=== PATIENT | female | born 1970 | race Caucasian/White ===

== ENCOUNTER 2018-08-10 09:45 | Inpatient (IN) | payer BC ==
[2018-08-10 10:17] LABS: Absolute Lymphocytes (CBC) 1.1 K/uL (0.7-4.9); Absolute Monocytes 0.4 K/uL (0.1-1.3); Absolute Neutrophil 2.8 K/uL (1.8-8.0); Basophils % 0.8 % (0-1.3); Eosinophils % 1.1 % (0-4.4); Hematocrit 41.1 % (36.0-45.0); Lymphocytes % 26.1 % (15.3-44.8); MCV 93.7 fL (80-100); MPV 9.6 fL (7.6-11.3); Monocytes % 8.8 % (3.3-12.3); RBC Red Blood Cell Count 4.39 M/uL (3.86-4.86)
[2018-08-10] MEDS ORDERED: MORPHINE 4 MG/ML SYR ONE ×2 (10:17→10:26)
[2018-08-10] MEDS ORDERED: ONDANSETRON 4 MG/2 ML VIAL ONE (10:18)
[2018-08-10] MEDS ORDERED: NITROGLYCERIN 0.4 MG/TAB SL ONE (10:18)
[2018-08-10 10:40] LABS: Bilirubin Direct 0.2 mg/dL (0-0.2); Bilirubin Total 0.6 mg/dL (0.2-1.0); Magnesium 2.5 mg/dL (1.8-2.4); Potassium 4.2 mmol/L (3.5-5.1); Protein, Total 8.1 g/dL (6.4-8.2); Troponin (Emerg Dept Use Only) 0.16 ng/mL (0.0-0.045)
--- NOTE | 2018-08-10 11:12 | RAD REPORT ---
EXAM DESCRIPTION: CT - Chest For Pe Angio - 08/10/2018 10:58 am CLINICAL HISTORY: Chest pain. CHEST PAIN COMPARISON: No comparisons TECHNIQUE: CT angiogram of the pulmonary arteries was performed with MIP. All CT scans are performed using dose optimization technique as appropriate and may include automated exposure control or mA/KV adjustment according to patient size. FINDINGS: No evidence of pulmonary thromboembolism. No acute aortic finding demonstrated. Mild interstitial pulmonary edema is present. No significant pericardial or pleural fluid. No concerning bony finding. IMPRESSION: No evidence of pulmonary thromboembolism. Mild interstitial pulmonary edema.
--- NOTE | 2018-08-10 11:20 | RAD REPORT ---
EXAM DESCRIPTION: RAD - Chest Single View - 08/10/2018 11:12 am CLINICAL HISTORY: CHEST PAIN Chest pain. COMPARISON: No comparisons FINDINGS: Portable technique limits examination quality. The lungs are grossly clear. The heart is normal in size. No displaced fractures. IMPRESSION: No acute intrathoracic process suspected.
--- NOTE | 2018-08-10 11:25 | ER ---
Nurse's Notes [facility] Name: Leslie Floyd Age: 48 yrs Sex: Female : 1970 Arrival Date: 08/10/2018 Time: 09:48 Bed 2 Private MD: Diagnosis: Chest pain, unspecified;Non-ST elevation (NSTEMI) myocardial infarction Presentation: 08/10 09:49 Presenting complaint: EMS states: Substernal chest pain began at 2200 last night, jl7 shortness of breath started at 0300, given 324 mg Aspirin prior to arrival. Transition of care: patient was not received from another setting of care. Onset of symptoms was August 09, 2018 at 22:00. Risk Assessment: Do you want to hurt yourself or someone else? Patient reports no desire to harm self or others. Initial Sepsis Screen: Does the patient meet any 2 criteria? No. Patient's initial sepsis screen is negative. Does the patient have a suspected source of infection? No. Patient's initial sepsis screen is negative. Care prior to arrival: None. 09:49 Method Of Arrival: EMS: [facility] 7 09:49 Acuity: LENCHO 2 jl7 Triage Assessment: 09:52 General: Appears in no apparent distress. uncomfortable, Behavior is calm, cooperative, jl7 appropriate for age. Pain: Complains of pain in mid-sternal area Pain does not radiate. Pain currently is 4 out of 10 on a pain scale. Quality of pain is described as pressure, Pain began Last night at 2200 Is continuous. EENT: No signs and/or symptoms were reported regarding the EENT system. Neuro: Level of Consciousness is awake, alert, obeys commands, Oriented to person, place, time, situation. Cardiovascular: Heart tones S1 S2 present Patient's skin is warm and dry. Respiratory: Airway is patent Respiratory effort is even, unlabored, Respiratory pattern is regular, symmetrical, Breath sounds are clear bilaterally. GI: No signs and/or symptoms were reported involving the gastrointestinal system. Patient currently denies diarrhea, nausea, vomiting. : No signs and/or symptoms were reported regarding the genitourinary system. Derm: Skin is pink, warm \T\ dry. Musculoskeletal: No signs and/or symptoms reported regarding the musculoskeletal system. 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 - Social history:: Smoking status: Patient/guardian denies using tobacco. - Ebola Screening: : No symptoms or risks identified at this time. - Family history:: not pertinent. - Hospitalizations: : No recent hospitalization is reported. Screenin:55 Abuse screen: Denies threats or abuse. Denies injuries from another. Nutritional jl7 screening: No deficits noted. Tuberculosis screening: No symptoms or risk factors identified. Fall Risk IV access (20 points). Total Nixon Fall Scale indicates No Risk (0-24 pts). Assessment: 09:55 General: See triage assessment. jl7 10:05 Reassessment: Pt reports increased pain and discomfort, ERD notified, see MAR for jl7 orders. 10:32 Reassessment: Pt reports decreased pain and easier breathing at this time, ERD notified.jl7 10:44 Reassessment: Dr. Nuñez at bedside discussing plan of care. jl7 12:30 Reassessment: Report given to EULALIA Rush (admitting nurse) . aa5 13:00 Reassessment: Echo being completed at bedside . aa5 13:00 Reassessment: Patient is alert/active/playful, equal unlabored respirations, skin aa5 warm/dry/pink. Vital Signs: 09:52 BP 139 / 96; Pulse 100; Resp 18 S; Temp 99.1(O); Pulse Ox 99% on R/A; Weight 65.77 kg jl7 (R); Height 5 ft. 5 in. (165.10 cm) (R); Pain 4/10; 10:30 BP 107 / 81; Pulse 93; Resp 17 S; Pulse Ox 95% on R/A; jl7 10:44 BP 111 / 80; Pulse 86; Resp 19; Pulse Ox 99% on R/A; jl7 09:52 Body Mass Index 24.13 (65.77 kg, 165.10 cm) 7 ED Course: 09:48 Patient arrived in ED. jl7 09:51 Triage completed. jl7 09:51 Bird Nuñez MD is Attending Physician. rn 09:52 Arm band placed on right wrist. jl7 09:55 Patient has correct armband on for positive identification. Placed in gown. Bed in low jl7 position. Call light in reach. Side rails up X2. quality assurance monitor on. Pulse ox on. NIBP on. Warm blanket given. 09:55 Patient maintains SpO2 saturation greater than 95% on room air. jl7 10:00 Initial lab(s) drawn, by me, sent to lab. Inserted saline lock: 20 gauge in right aa5 antecubital area, using aseptic technique. Blood collected. 10:03 EKG done, by ED staff, reviewed by Bird Nuñez MD. dh3 10:27 Tatyana Segura, EULALIA is Primary Nurse. jl7 10:58 CT completed. Patient tolerated procedure well. Patient moved to CT via stretcher. jg6 Patient moved back from CT. 10:59 CT Chest For PE Angio In Process Unspecified. EDMS 11:13 XRAY Chest (1 view) In Process Unspecified. EDMS 11:24 Leigha Nelson MD is Hospitalizing Provider. rn 12:30 No provider procedures requiring assistance completed. aa5 12:30 Patient admitted, IV remains in place. aa5 13:24 Echocardiogram with doppler done by electronic engineering technician. tc Administered Medications: 10:09 Drug: Nitroglycerin 0.4 mg Route: Sublingual; jl7 10:30 Follow up: Response: No adverse reaction; Pain is decreased jl7 10:10 Drug: Zofran 4 mg Route: IVP; Site: right antecubital; jl7 10:30 Follow up: Response: No adverse reaction jl7 10:16 Drug: morphine 2 mg Route: IVP; Site: right antecubital; jl7 10:30 Follow up: Response: No adverse reaction; Pain is decreased jl7 11:35 Drug: PlaVIX 75 mg Route: PO; jl7 13:11 Follow up: Response: No adverse reaction jl7 12:00 Drug: Heparin ([place]-Bolus No thrombolytic) - HEParin 60 units/kg {Co-Signature: aa5 jl7 (Mackenzie Marin RN).} Route: IVP; Site: right antecubital; 12:00 Drug: Heparin ([place] Drip) 12 units/kg/hr - (HEParin 64908 units, D5W 500 ml) jl7 {Co-Signature: andrae (Mackenzie Marin RN).} Route: IV; Rate: calculated rate; Site: right antecubital; 13:39 Follow up: IV Status: Infusion continued upon admission jl7 Outcome: 11:24 Decision to Hospitalize by Provider. rn 13:30 Admitted to Tele accompanied by tech, via wheelchair, with chart, Report called to andrae Rush RN 13:30 Condition: stable 13:30 Instructed on the need for admit, Demonstrated understanding of instructions. 13:39 Patient left the ED. andrae Signatures: Dispatcher [employer] EDMS Bird Nuñez MD MD rn Calderon, Mackenzie, RN RN aa5 Sonja Bullard, health educator EKG [facility] Tatyana Segura RN RN jl7 Jael Walters [facility] Isaura Tavera [facility] Mackenzie abebe
--- NOTE | 2018-08-10 11:25 | EDPHYS ---
Physician Documentation [facility] Name: Leslie Floyd Age: 48 yrs Sex: Female : 1970 Arrival Date: 08/10/2018 Time: 09:48 Bed 2 Private MD: ED Physician Bird Nuñez HPI: 08/10 10:25 This 48 yrs old Female presents to ER via EMS with complaints of Chest Pain > rn 31 y/o. 10:25 The patient or guardian reports chest pain that is located primarily in the substernal rn area. Onset: last night. The pain does not radiate. Associated signs and symptoms: Pertinent positives: nausea, Pertinent negatives: abdominal pain, cough, diaphoresis, palpitations, syncope, vomiting. The chest pain is described as a heaviness, a pressure. Duration: The patient or guardian reports a single episode, that is still ongoing. Severity of pain: At its worst the pain was mild in the emergency department the pain is unchanged. The patient has not experienced similar symptoms in the past. The patient has not recently seen a physician. 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 - Social history:: Smoking status: Patient/guardian denies using tobacco. - Ebola Screening: : No symptoms or risks identified at this time. - Family history:: not pertinent. - Hospitalizations: : No recent hospitalization is reported. ROS: 10:25 Constitutional: Negative for fever, chills, and weight loss, Eyes: Negative for injury, rn pain, redness, and discharge, Neck: Negative for injury, pain, and swelling, Cardiovascular: Negative for palpitations, and edema, Respiratory: Negative for cough, wheezing, and pleuritic chest pain, Abdomen/GI: Negative for abdominal pain, nausea, vomiting, diarrhea, and constipation, MS/Extremity: Negative for injury and deformity, Skin: Negative for injury, rash, and discoloration, Neuro: Negative for headache, weakness, numbness, tingling, and seizure. Exam: 10:05 ECG was reviewed by the Attending Physician. rn 10:25 Constitutional: This is a well developed, well nourished patient who is awake, alert, rn and in no acute distress. Head/Face: Normocephalic, atraumatic. Eyes: Pupils equal round and reactive to light, extra-ocular motions intact. Lids and lashes normal. Conjunctiva and sclera are non-icteric and not injected. Cornea within normal limits. Periorbital areas with no swelling, redness, or edema. Cardiovascular: Regular rate and rhythm. No pulse deficits. Respiratory: Lungs have equal breath sounds bilaterally, clear to auscultation and percussion. No increased work of breathing Abdomen/GI: soft, non-tender Skin: Warm, dry, no evidence of cellulitis. MS/ Extremity: Pulses equal, no cyanosis. Neurovascular intact. Full, normal range of motion. Equal circumference. Neuro: Awake and alert, GCS 15, oriented to person, place, time, and situation. Cranial nerves II-XII grossly intact. Motor strength 5/5 in all extremities. Sensory grossly intact. Vital Signs: 09:52 BP 139 / 96; Pulse 100; Resp 18 S; Temp 99.1(O); Pulse Ox 99% on R/A; Weight 65.77 kg 7 (R); Height 5 ft. 5 in. (165.10 cm) (R); Pain 4/10; 10:30 BP 107 / 81; Pulse 93; Resp 17 S; Pulse Ox 95% on R/A; jl7 10:44 BP 111 / 80; Pulse 86; Resp 19; Pulse Ox 99% on R/A; jl7 09:52 Body Mass Index 24.13 (65.77 kg, 165.10 cm) 7 MDM: 09:51 Patient medically screened. rn 11:22 Differential diagnosis: acute myocardial infarction, acute pericarditis, coronary rn artery disease costochondritis, gastritis, gastroesophageal reflux disease (GERD), pleurisy, pneumonia, pneumothorax, pulmonary embolus, stable angina. The patient was not given aspirin in the Emergency Department. Patient reports taking aspirin within the past 24 hours. Data reviewed: vital signs, nurses notes, lab test result(s), EKG, radiologic studies, CT scan, plain films, and as a result, I will admit patient. Counseling: I had a detailed discussion with the patient and/or guardian regarding: the historical points, exam findings, and any diagnostic results supporting the discharge/admit diagnosis, lab results, radiology results, the need for further work-up and treatment in the hospital. Response to treatment: the patient's symptoms have mildly improved after treatment, and as a result, I will admit patient. Admission orders: after a detailed discussion of the patient's condition and case, the admit orders are written by me. 11:22 ED course: Spoke with Dr. Nelson, CT PE negative for PE or pericardial effusion, will rn mds for NSTEMI and further chest pain evaluation.. 11:34 ED course: Chest pain nearly resolved, feels better after nitro and morphine.. rn 08/10 10:02 Order name: Basic Metabolic Panel; Complete Time: 10: rn 08/10 10:02 Order name: CBC with Diff; Complete Time: 10: rn 08/10 10:02 Order name: LFT's; Complete Time: : rn 08/10 10:02 Order name: Magnesium; Complete Time: : rn 08/10 10:02 Order name: NT PRO-BNP; Complete Time: : rn 08/10 10:02 Order name: Troponin (emerg Dept Use Only); Complete Time: : rn 08/10 10:02 Order name: XRAY Chest (1 view); Complete Time: 11: rn 08/10 10:02 Order name: Lipase; Complete Time: 10: rn 08/10 10:02 Order name: D-Dimer; Complete Time: 10:39 rn 08/10 10:31 Order name: CT Chest For PE Angio; Complete Time: 11: rn 08/10 11:32 Order name: Echo with Doppler EDMS 08/10 11:48 Order name: Ptt, Activated dh3 08/10 10:02 Order name: EKG; Complete Time: 10: rn 08/10 10:02 Order name: Cardiac monitoring; Complete Time: : rn 08/10 10:02 Order name: EKG - Nurse/Tech; Complete Time: 10: rn 08/10 10:02 Order name: IV Saline Lock; Complete Time: : rn 08/10 10:02 Order name: Labs collected and sent; Complete Time: 10: rn 08/10 10:02 Order name: O2 Per Protocol; Complete Time: :08/10 10:02 Order name: O2 Sat Monitoring; Complete Time: 10: rn EC:05 Rate is 86 beats/min. Rhythm is regular. QRS Petty is Normal. IN interval is normal. QRS rn interval is normal. QT interval is prolonged. No Q waves. T waves are Inverted in leads I, aVL, V1, V2, V3. No ST changes noted. Clinical impression: NSR w/ Non-specific ST/T Changes. Interpreted by me. Administered Medications: 10:09 Drug: Nitroglycerin 0.4 mg Route: Sublingual; jl7 10:30 Follow up: Response: No adverse reaction; Pain is decreased jl7 10:10 Drug: Zofran 4 mg Route: IVP; Site: right antecubital; jl7 10:30 Follow up: Response: No adverse reaction jl7 10:16 Drug: morphine 2 mg Route: IVP; Site: right antecubital; jl7 10:30 Follow up: Response: No adverse reaction; Pain is decreased jl7 11:35 Drug: PlaVIX 75 mg Route: PO; jl7 13:11 Follow up: Response: No adverse reaction jl7 12:00 Drug: Heparin ([place]-Bolus No thrombolytic) - HEParin 60 units/kg {Co-Signature: andrae jlLj (Mackenzie Marin RN).} Route: IVP; Site: right antecubital; 12:00 Drug: Heparin ([place] Drip) 12 units/kg/hr - (HEParin 85070 units, D5W 500 ml) jl7 {Co-Signature: aa5 (Mackenzie Marin RN).} Route: IV; Rate: calculated rate; Site: right antecubital; 13:39 Follow up: IV Status: Infusion continued upon admission jl7 Disposition: 08/10/18 11:24 Hospitalization ordered by Leigha Nelson for Inpatient Admission. Preliminary diagnosis are Chest pain, unspecified, Non-ST elevation (NSTEMI) myocardial infarction. - Bed requested for Telemetry/MedSurg (Inpatient). - Status is Inpatient Admission. aa5 - Condition is Stable. - Problem is new. - Symptoms have improved. UTI on Admission? No Signatures: Dispatcher [employer] EDMS Bird Nuñez MD MD rn Calderon, Mackenzie RN RN aa5 Tatyana Segura RN RN jl7 Luanne Moya RN aa5 Corrections: (The following items were deleted from the chart) 12:23 11:24 Hospitalization Ordered by Leigha Nelson MD for Inpatient Admission. Preliminary eb diagnosis is Chest pain, unspecified; Non-ST elevation (NSTEMI) myocardial infarction. Bed requested for Telemetry/MedSurg (Inpatient). Status is Inpatient Admission. Condition is Stable. Problem is new. Symptoms have improved. UTI on Admission? No. rn 13:39 12:23 08/10/2018 11:24 Hospitalization Ordered by Leigha Nelson MD for Inpatient aa5 Admission. Preliminary diagnosis is Chest pain, unspecified; Non-ST elevation (NSTEMI) myocardial infarction. Bed requested for Telemetry/MedSurg (Inpatient). Status is Inpatient Admission. Condition is Stable. Problem is new. Symptoms have improved. UTI on Admission? No. eb
[2018-08-10] MEDS ORDERED: CLOPIDOGREL 75 MG TABLET ONE (11:39)
[2018-08-10] MEDS ORDERED: HEPARIN 5000 UNIT/ML 1 ML VIAL ONE (11:51)
[2018-08-10] MEDS ORDERED: HEPARIN/D5W 25,000 UNIT/500 ML BAG IV ONE (11:51)
--- NOTE | 2018-08-10 12:33 | EKG ---
Test Date: 2018-08-10 Test Time: 10:01:37 Observer Electrical Prospecting: CORBIN MEASUREMENT RESULTS: Intervals: Rate: 86 OR: 140 QRSD: 82 QT: 416 QTc: 497 [place]: P: 72 OR: 140 QRS: 53 T: 99 INTERPRETIVE STATEMENTS: Normal sinus rhythm T wave abnormality, consider anterolateral ischemia Prolonged QT Abnormal ECG No previous ECG available for comparison Electronically Signed On 08-10-18 12:32:37 BASEBALL INSPECTOR by Ace Erickson
[2018-08-10] MEDS ORDERED: ACETAMINOPHEN 500 MG TAB PO PRN (14:10)
[2018-08-10] MEDS ORDERED: ONDANSETRON 4 MG/2 ML VIAL IV PRN (14:10)
[2018-08-10] MEDS ORDERED: ENOXAPARIN 40 MG/0.4 ML SQ SCH (15:00)
--- NOTE | 2018-08-10 15:32 | P.HP ---
Certification for Inpatient Patient admitted to: Inpatient With expected LOS: >2 Midnights Patient will require the following post-hospital care: None Practitioner: I am a practitioner with admitting privileges, knowledge of patient current condition, hospital course, and medical plan of care. Services: Services provided to patient in accordance with Admission requirements found in Title 42 Section 412.3 of the Code of Federal Regulations Patient History Date of Service: 08/10/18 Primary Care Provider: Dr Palomares Reason for admission: Chest pain History of Present Illness: 48-year-old female with significant past medical history presented to the ED complaining of having some chest pain that started yesterday at night time around 9:00 p.m.. Patient stated that she felt like there was heavy pressure on her chest and had nausea and vomiting. Patient went to sleep and this morning headed to work her chest pain did continue at work and the she decided to come to the medical staff office at work. In the office she had an EKG done which was consistent with nonspecific ST changes and thus she was brought over to the hospital for further workup. Patient denies having any fever chills abdominal pain or any other associated symptoms. Does however state that she was short of breath this morning that got progressively worse as her chest pain became worse as well. Patient of note about 2 months ago had an EGD done and was found to have gastric ulcer by Dr. martines in his office. Had been taking Protonix since then. No other complaints to offer. Family history cannot be assessed as patient is adopted. Patient does not take any medication other than her Protonix and Vyvanse along with OCPs. Allergies No Known Allergies Allergy (Unverified 08/10/18 12:29) Home Medications: Duloxetine HCl 30 mg PO DAILY 08/10/18 Lisdexamfetamine Dimesylate [Vyvanse] 50 mg PO DAILY 08/10/18 Norethindrone AC-Eth Estradiol [Norethind-Eth Estrad 1-0.02 mg] 1 tab PO DAILY 08/10/18 Omeprazole [Prilosec] 40 mg PO ACB 08/10/18 - Past Medical/Surgical History Has patient received pneumonia vaccine in the past: No Diabetic: No -: Reynaud's Syndrome -: Chronic migraines -: Anxiety -: Stomach ulcer - March 2018 -: - Family History Family History: Reviewed- Non-Contributory - Social History Smoking Status: Never smoker Alcohol use: Yes CD- Drugs: No Caffeine use: Yes Place of Residence: Home Review of Systems 10-point ROS is otherwise unremarkable Physical Examination - Vital Signs Temperature: 99.1 F Blood Pressure: 111/80 Pulse: 86 Respirations: 19 - Physical Exam General: Alert, In no apparent distress HEENT: Atraumatic, PERRLA, Mucous membr. moist/pink, EOMI, Sclerae nonicteric Neck: Supple, 2+ carotid pulse no bruit, No LAD, Without JVD or thyroid abnormality Respiratory: Clear to auscultation bilaterally, Normal air movement Cardiovascular: Regular rate/rhythm, Normal S1 S2 Gastrointestinal: Normal bowel sounds, No tenderness Musculoskeletal: No tenderness Integumentary: No rashes Neurological: Normal gait, Normal speech, Normal strength at 5/5 x4 extr, Normal tone, Normal affect Lymphatics: No axilla or inguinal lymphadenopathy - Studies Laboratory Data (last 24 hrs) 08/10/18 10:00: APTT 31.7 08/10/18 10:00: WBC 4.4, Hgb 14.0, Hct 41.1, Plt Count 290 08/10/18 10:00: Sodium 140, Potassium 4.2, BUN 14, Creatinine 1.00, Glucose 92, Magnesium 2.5 H, Total Bilirubin 0.6, AST 23, ALT 28, Alkaline Phosphatase 47, Lipase 196 Assessment and Plan - Problems (Diagnosis) (1) NSTEMI (non-ST elevated myocardial infarction) Current Visit: Yes Status: Acute Plan: NSTEMI with elevated Troponin and non specific EKG changes -Will repeat Troponin x 2 -Cardiology consulted. -BB, ASA, Statin. Hold Lovenox with recent h/o GI bleed. Caution with ASA as well -ECHO pending (2) Gastric ulcer Current Visit: Yes Status: Chronic Plan: Recent Scope with Gastric Ulcer -Benefit of ASA outweights the Risk for now and thus will continue ASA and hold lovenox -Continue Protonix for now as well Qualifiers: Gastric ulcer chronicity: chronic Gastric ulcer complication status: with hemorrhage Qualified Code(s): K25.4 - Chronic or unspecified gastric ulcer with hemorrhage Discharge Plan: Home Plan to discharge in: 48 Hours - Advance Directives Does patient have a Living Will: Yes Does patient have a Durable POA for Healthcare: No - Code Status/Comfort Care Code Status Assessed: Yes Critical Care: No
[2018-08-10 15:42] VITALS: BMI 24.1
[2018-08-10] MEDS ORDERED: SUMATRIPTAN SUCCI 50 MG TAB PO PRN (15:56)
[2018-08-10] MEDS ORDERED: SUMATRIPTAN SUCCINATE 100 MG PO PRN (16:14)
--- NOTE | 2018-08-10 17:15 | ECHO ---
HEIGHT: 5 ft 5 in WEIGHT: 145 lb 0 oz DATE OF STUDY: 08/10/[address]: Leigha Nelson MD 2-DIMENSIONAL: YES M.MODE: YES DOPPLER: YES COLOR FLOW: YES TDS: PORTABLE: DEFINITY: BUBBLE STUDY: DIAGNOSIS: NON ST ELEVATION MYOCARDIAL INFARCTION. CARDIAC HISTORY: CATHERIZATION: NO SURGERY: NO PROSTHETIC VALVE: NO PACEMAKER: NO MEASUREMENTS (cm) DIASTOLIC (NORMALS) SYSTOLIC (NORMALS) IVSd 0.9 (0.6-1.2) LA Diam 1.7 (1.9-4.0) LVEF 70% LVIDd 4.2 (3.5-5.7) LVIDs 2.5 (2.0-3.5) %FS 39% LVPWd 1.0 (0.6-1.2) Ao Diam 3.0 (2.0-3.7) 2 DIMENSIONAL ASSESSMENT: RIGHT ATRIUM: NORMAL LEFT ATRIUM: NORMAL RIGHT VENTRICLE: NORMAL LEFT VENTRICLE: NORMAL TRICUSPID VALVE: NORMAL MITRAL VALVE: NORMAL PULMONIC VALVE: NORMAL AORTIC VALVE: NORMAL PERICARDIAL EFFUSION: NONE AORTIC ROOT: NORMAL LEFT VENTRICULAR WALL MOTION: NORMAL DOPPLER/COLOR FLOW: NORMAL COMMENTS: NORMAL TWO DIMENSIONAL ECHOCARDIOGRAM WITH DOPPLER. TECHNOLOGIST: DERRICK SNELL
[2018-08-10] MEDS: SUMATRIPTAN SUCCI 50 MG TAB PO PRN (18:00)
[2018-08-10] MEDS ORDERED: ATORVASTATIN 20 MG TAB PO SCH (21:00)
--- NOTE | 2018-08-10 23:22 | CON ---
Chief Complaint: Chest pain. History Of Present Illness: Mrs. Floyd has been having chest pain for about 24 hours and now it i s relenting. She is now having a migraine headache and actually took a sumatriptan. Her chest pain did not get worse after taking that. She has a history of a gastric ulcer discovered 3 months ago. She has been on omeprazole 40 mg a day since then. She also takes duloxetine, Vyvanse, norethindrone , and sumatriptan. She uses no tobacco. Does not have diabetes or dyslipidemia. She has frequent c heckups with physicians and has never been diagnosed with diabetes or dyslipidemia. Physical Examination: Vital Signs: 5 feet 5, 145 pounds. HEENT: Unremarkable. Lungs: Clear. Heart: Within normal limits. Radial pulses normal. Pepe's test normal. Extremities: No edema, cyanosis, clubbing. Skin: Warm, pink, well perfused. Diagnostic Data: Electrocardiogram shows nonspecific T-wave abnormality could be consistent with ant erolateral ischemia. An echocardiogram shows no wall motion abnormality. Laboratory Data: Troponin of 0.16, 0.10. Her creatinine is 1.0. Allergies: SHE HAS NO KNOWN ALLERGIES. Impression: This may be an acute coronary syndrome. It also could be coronary spasm associated with migraine headaches. Cardiac cath is the best way to treat her. We will do it early in the morning and be ready to do a stent if needed. I feel comfortable getting dual anti- platelet therapy if needed given the fact that she has been on Prilosec for 3 months. AMY/BARBI Voice ID: [id number] Report ID: [id number]
[2018-08-11] MEDS ORDERED: METOPROLOL TAR 25 MG TAB PO SCH (06:00)
[2018-08-11] MEDS ORDERED: HEPA 1000U/500MLS 1,000 UNIT/500 ML BAG IV ONE ×2 (06:50→07:06)
[2018-08-11] MEDS ORDERED: NITROGLYCERIN/D5W 25 MG/250 ML BTL IV ONE (07:06)
[2018-08-11] MEDS ORDERED: HEPARIN 5000 UNIT/ML 1 ML VIAL ONE (07:06)
[2018-08-11] MEDS ORDERED: NICARDIPINE HCL 25 MG/10 ML IV ONE (07:06)
[2018-08-11] MEDS ORDERED: NITROGLYCERIN 100 MCG/ML SYR (for cath lab use only) IV ONE (07:06)
[2018-08-11 07:14] LABS: Absolute Lymphocytes (CBC) 1.4 K/uL (0.7-4.9); Absolute Monocytes 0.4 K/uL (0.1-1.3); Absolute Neutrophil 1.7 K/uL (1.8-8.0); Basophils % 0.8 % (0-1.3); Eosinophils % 2.2 % (0-4.4); Hematocrit 38.7 % (36.0-45.0); Lymphocytes % 37.5 % (15.3-44.8); MCH 32.3 pg (27.0-35.0); MPV 9.9 fL (7.6-11.3); Monocytes % 11.8 % (3.3-12.3); RBC Red Blood Cell Count 4.12 M/uL (3.86-4.86)
[2018-08-11 07:17] LABS: Albumin 3.5 g/dL (3.4-5.0); Bilirubin Total 0.5 mg/dL (0.2-1.0)
[2018-08-11] MEDS ORDERED: HOME MED 1 EA UNK (Omeprazole [Prilosec] 40 MG) PO SCH (07:30)
[2018-08-11] MEDS ORDERED: PANTOPRAZOLE 40MG TABLET PO SCH (07:30)
[2018-08-11] MEDS ORDERED: NA CHLORIDE 0.9% 500 ML ONE (07:36)
[2018-08-11] MEDS ORDERED: MIDAZOLAM HCL 2 MG/2 ML INJ ONE ×2 (07:37→07:52)
[2018-08-11] MEDS ORDERED: FENTANYL CITR 100 MCG/2 ML ONE (07:38)
[2018-08-11] MEDS ORDERED: NA CHLORIDE 0.9% 0 ML ONE (07:38)
[2018-08-11] MEDS ORDERED: ATROPINE SULF 1 MG/10 ML SYR IV ONE (07:38)
[2018-08-11] MEDS ORDERED: LIDOCAINE 1% MPF 30 ML VIAL ONE (07:46)
[2018-08-11] MEDS ORDERED: DILTIAZEM HCL 60 MG TAB PO PRN (08:16)
[2018-08-11 08:32] LABS: Phosphorus 3.4 mg/dL (2.5-4.9)
[2018-08-11 08:35] VITALS: TEMP 97.4
[2018-08-11 08:51] VITALS: O2SAT 98
[2018-08-11] MEDS ORDERED: DULOXETINE 30 MG CAP PO SCH (09:00)
[2018-08-11] MEDS ORDERED: LISDEXAMFETAMINE DIMESYLATE 50 MG PO SCH (09:00)
[2018-08-11] MEDS ORDERED: ASPIRIN EC 81 MG TAB PO SCH (09:00)
[2018-08-11] MEDS: SUMATRIPTAN SUCCI 50 MG TAB PO PRN (09:05)
[2018-08-11 10:03] VITALS: BP 117/77
--- NOTE | 2018-08-11 15:57 | P.DS ---
Admission Date: 08/10/18 Discharge Date: 08/11/18 Primary Care Provider: Dr Palomares Disposition: ROUTINE DISCHARGE Discharge Condition: GOOD Reason for Admission: Chest pain Consultations: Cardiology - Dr Calixto Procedures: Catherization - Problems (1) NSTEMI (non-ST elevated myocardial infarction) Onset Date: 08/11/18 Status: Acute (2) Gastric ulcer Onset Date: 08/11/18 Status: Chronic Qualifiers: Gastric ulcer chronicity: chronic Gastric ulcer complication status: with hemorrhage Qualified Code(s): K25.4 - Chronic or unspecified gastric ulcer with hemorrhage Brief History of Present Illness: 48-year-old female with significant past medical history presented to the ED complaining of having some chest pain that started yesterday at night time around 9:00 p.m.. Patient stated that she felt like there was heavy pressure on her chest and had nausea and vomiting. Patient went to sleep and this morning headed to work her chest pain did continue at work and the she decided to come to the medical staff office at work. In the office she had an EKG done which was consistent with nonspecific ST changes and thus she was brought over to the hospital for further workup. Patient denies having any fever chills abdominal pain or any other associated symptoms. Does however state that she was short of breath this morning that got progressively worse as her chest pain became worse as well. Patient of note about 2 months ago had an EGD done and was found to have gastric ulcer by Dr. martines in his office. Had been taking Protonix since then. No other complaints to offer. Family history cannot be assessed as patient is adopted. Patient does not take any medication other than her Protonix and Vyvanse along with OCPs. Hospital Course: Overall during the hospital stay patient remained stable Patient was admitted to the hospital for chest pain was found to have elevated troponin with nonspecific EKG changes. The patient was admitted to the hospital for non ST elevation PR. Cardiology was consulted. Patient had heart catheterization done here in the hospital. Catheterization was within normal limits without any coronary artery disease. At that time the decision was made to discharge the patient under stable condition was given a prescription for p.r.n. Cardizem to be taken with chest pain. Patient was also asked to have a followup appointment with Cardiology in about 1-2 days post discharge. Patient demonstrated understanding and thus was discharged home under stable condition Vital Signs/Physical Exam: Temp Pulse Resp BP Pulse Ox 97.4 F 73 16 117/77 98 08/11/18 08:25 08/11/18 10:02 08/11/18 10:02 08/11/18 10:02 08/11/18 04:00 General: Alert, In no apparent distress HEENT: Atraumatic, PERRLA, EOMI Neck: Supple, JVD not distended Respiratory: Clear to auscultation bilaterally, Normal air movement Cardiovascular: Regular rate/rhythm, Normal S1 S2 Gastrointestinal: Normal bowel sounds, No tenderness Musculoskeletal: No tenderness Integumentary: No rashes Neurological: Normal speech, Normal tone, Normal affect Lymphatics: No axilla or inguinal lymphadenopathy Laboratory Data at Discharge: WBC 3.6 K/uL (4.3-10.9) L D 08/11/18 06:39 Hgb 13.3 g/dL (12.0-15.0) 08/11/18 06:39 Hct 38.7 % (36.0-45.0) 08/11/18 06:39 Plt Count 269 K/uL (152-406) 08/11/18 06:39 APTT 31.7 SECONDS (24.3-36.9) 08/10/18 10:00 Sodium 142 mmol/L (136-145) 08/11/18 06:39 Potassium 4.0 mmol/L (3.5-5.1) 08/11/18 06:39 BUN 13 mg/dL (7-18) 08/11/18 06:39 Creatinine 0.80 mg/dL (0.55-1.3) 08/11/18 06:39 Glucose 91 mg/dL (74-106) 08/11/18 06:39 Phosphorus 3.4 mg/dL (2.5-4.9) 08/11/18 06:39 Magnesium 2.5 mg/dL (1.8-2.4) H 08/10/18 10:00 Total Bilirubin 0.5 mg/dL (0.2-1.0) 08/11/18 06:39 AST 18 U/L (15-37) 08/11/18 06:39 ALT 22 U/L (12-78) 08/11/18 06:39 Alkaline Phosphatase 42 U/L (45-117) L 08/11/18 06:39 Troponin I 0.02 ng/mL (0.0-0.045) 08/11/18 06:39 Triglycerides 118 mg/dL (<150) 08/11/18 06:39 Cholesterol 198 mg/dL (<200) 08/11/18 06:39 HDL Cholesterol 73 mg/dL (40-60) H 08/11/18 06:39 Cholesterol/HDL Ratio 2.71 08/11/18 06:39 Lipase 196 U/L (73-393) 08/10/18 10:00 Home Medications: Duloxetine HCl 30 mg PO DAILY 08/10/18 Lisdexamfetamine Dimesylate [Vyvanse] 50 mg PO DAILY 08/10/18 Norethindrone AC-Eth Estradiol [Norethind-Eth Estrad 1-0.02 mg] 1 tab PO DAILY 08/10/18 Omeprazole [Prilosec] 40 mg PO ACB 08/10/18 SUMAtriptan succinate [Sumatriptan Succinate] 100 mg PO DAILY PRN 08/10/18 Diltiazem Tab [Cardizem Tab*] 60 mg PO 1X PRN #15 tab 08/11/18 New Medications: Diltiazem Tab [Cardizem Tab*] 60 mg PO 1X PRN #15 tab PRN Reason: Chest Pain Patient Discharge Instructions: Please f.u with pcp and cardiology in 1 to 2 weeks. New medication. Cardizem 60mg PRN for chest Pain Diet: Regular Activity: Ad trice Followup: Ace Erickson MD [ACTIVE - CAN ADMIT] - 1 Week (Follow up in office in 1 week. Call to schedule an appointment.)
--- NOTE | 2018-08-11 18:53 | OP ---
Surgeon: Hasmukh Calixto MD Procedures: Left heart catheterization, coronary left ventricular angiography. Indication: Abnormal EKG, abnormal troponins with chest pain. Procedure Findings: The patient has completely normal coronary arteries. There was no spasm. No mi ld plaque. No calcification. There was completely normal typical right dominant pattern. Left vent ricular ejection fraction was normal, segmental wall motion normal, and all the pressures were within normal limits, although she was mildly hypotensive because of the administration of a radial cocktai l containing nicardipine and nitroglycerin. The hypotension resolved by the end of the case. Procedure In Detail: The patient gave us informed consent. She was brought to the cardiac manager laboratory in a fasting state sedated with Versed and fentanyl, titrated to an adequate level of sedation. Prep ared and draped in the usual sterile fashion. The right radial approach was used. Right radial radha ry was identified through palpation. Pepe's test and Barbeau test were normal. The skin over the r adial artery was anesthetized with 1% lidocaine. A 21-gauge needle was used to enter the artery. A 0.021 inch diameter guidewire was used to cannulate the artery. We then used the modified Seldinger technique to place a 6-Danish Terumo radial sheath. As soon as it was in the sheath was flushed and she was given a radial cocktail containing nicardipine, heparin, and nitroglycerin. We used a TIG ca theter guided into the ascending aorta using fluoroscopy and a Terumo Glidewire with a short radius J -tip. The TIG catheter was used to cannulate right coronary, left coronary, and left ventricle. At the end of the procedure when all pictures were taken, decision was made to end the procedure. The c atheter had a J-wire inserted into it to keep it straight. It was removed from the radial artery. S ivan was flushed. I then removed and the arteriotomy closed with a TR band. Estimated Blood Loss: 5 cc. Complications: None. Professor Of Environmental Engineering: Oscar Vences. AMY/BARBI Voice ID: [id number] Report ID: [id number]
== END 2018-08-11 13:24 | disposition home or self-care (01) | DRG 280 ==
LOC: ER 09:45 → ERHOLD 11:35 → 4TH 12:27
PROVIDERS: ADMIT Family Medicine; ATTEND Family Medicine
PROC: 4A023N7 Measurement of Cardiac Sampling and Pressure, Left Heart, Percutaneous Approach (ICD-10-PCS; principal; 2018-08-11)
PROC: B211YZZ Fluoroscopy of Multiple Coronary Arteries using Other Contrast (ICD-10-PCS; 2018-08-11)
PROC: B215YZZ Fluoroscopy of Left Heart using Other Contrast (ICD-10-PCS; 2018-08-11)
DX: I21.4 Non-ST elevation (NSTEMI) myocardial infarction (principal); K25.4 Chronic or unspecified gastric ulcer with hemorrhage; G43.909 Migraine, unspecified, not intractable, without status migrainosus; F41.9 Anxiety disorder, unspecified; I95.2 Hypotension due to drugs; T46.1X5A Adverse effect of calcium-channel blockers, initial encounter; Y92.234 Operating room of hospital as the place of occurrence of the external cause
CPT/HCPCS: 36415; 71045; 71275; 80048; 80053; 80061; 80076; 83690; 83735; 83880; 84100; 84484; 85025; 85379; 85730; 93005; 93306; 93458; 96365; 96366; 96375; 99285; C1893; J0583; J1644; J1650; J2250; J2405; J3010; Q9967

== ENCOUNTER 2021-02-06 11:01 | Observation (INO) | payer BC ==
--- OUTSIDE RECORDS SUMMARY | 2021-02-06 11:04 | XMS REPORT | Continuity of Care Document ---
:1970 Author Organization [facility] t Address [address] Patric[address] [place] [address] Care Team Providers Name Role Phone Zoe Palomares MD Primary Care Physician Alma LIVINGSTON Attending Clinician NICOLASA Attending Clinician Unavailable Mike RN Attending Clinician Unavailable Oscar ESTEBAN Attending Clinician Unavailable Doctor Unassigned, Name Attending Clinician Unavailable Jerrod Lang MD Attending Clinician Only, Test Attending Clinician Unavailable Nick ESTEBAN Attending Clinician Unavailable Sergio HOYOS Attending Clinician Unavailable Kurtis LIVINGSTON Attending Clinician Jonathan MENA Attending Clinician ANNETTE Attending Clinician Unavailable ALMA Admitting Clinician Unavailable Kurtis LIVINGSTON Admitting Clinician Payers Payer Name Policy Type Policy Effective Date Expiration Date Sour ce Number BCBSBCBS CHOICE [id number] 2018 [place] PPO/FEDERAL 00:00:00 [facility] EMPL [id number] 2018-Presen tPPO Problems Condition Condition Condition Status Onset Resolution Last Treating Co mments Source Name Details Category Date Date Treatment Clinician Date Heart Heart Disease Active 2018-09 Overview: [place] failure failure 0-03 Formattin Metho di 00:00: g of this st 00 note might be different from the original. Added automatic ally from request for surgery [id number] Allergies, Adverse Reactions, Alerts Allergy Allergy Status Severity Reaction(s) Onset Inactive Treating Comm ents Source Name Type Date Date Clinician No Known DA Active U [facility] 06-15 [facility] [place] Social History Social Habit Start Date Stop Date Quantity Comments Source Tobacco use and 2020-04-03 2020-04-03 Never used [place] exposure 00:00:00 00:00:00 [facility] Alcohol intake 2020-04-03 2020-04-03 Current drinker of [place] 00:00:00 00:00:00 alcohol (finding) [facility] Alcohol Comment 2018-09-01 2018-09-01 occasionally [place] 00:00:00 00:00:00 [facility] Sex Ass[birth year] At [birth year] F [place] 00:00:00 00:00:00 [facility] Smoking Status Start Date Stop Date Source Never smoker [place] [facility] t Medications Ordered Filled Start Stop Current Ordering Indication Dosage Frequency Signature Comments Components Source Medication Medication Date Date Medication? Clinician (SIG) Name Name trazodone Yes 25mg QD Take 25 mg [place] HCl 3-10 by mouth Method[facility] (TRAZODONE 14:36: nightly as s t ORAL) 01 needed. sildenafil, Yes TAKE [place] for 1-12 ONE-HALF [facility] pulmonary 00:00: TABLET BY st hypertersio 00 MOUTH n, THREE (REVATIO) TIMES A 20 mg DAY tablet metoprolol Heart 12.5mg Q.5D Take 0.5 [place] tartrate 13 05-13 failure, tablets Met hodi (LOPRESSOR) 00:00: 23:59 unspecified (12.[address] 25 mg 00 :00 HF total) by tablet chronicity, mouth 2 unspecified (two) heart times a failure day. type (HCC) levothyroxi Yes 50ug QD Take 50 Janie ston ne 4-08 mcg by Methodi (SYNTHROID) 00:00: mouth st 50 mcg 00 daily. tablet sildenafil, 2020- No 20mg Q.12901311 Take 1 [place] for -10-07 [id number] tablet (20 Me thodi pulmonary 00:00: 00:00 3D mg total) st hypertersio 00 :00 by mouth 3 n, (three) (Revatio) times a 20 mg day. tablet Vyvanse 60 Yes 60mg Q24H Take 60 mg [place] mg capsule 3-12 by mouth Metho di 00:00: daily as st 00 needed. trazodone 2020- No 25mg QD Take 25 mg [place] HCl 9-25 06-18 by mouth [facility] (TRAZODONE 00:00: 00:[address] ORAL) 00 :00 needed for sleep. butalbital- 2017-09- No 1{capsu Take 1 [place] acetaminoph 10-24 le} capsule by Priya ayala en-caff 00:00: 00:[address] 50-300-40 00 :00 needed. mg capsule SUMAtriptan Yes 120mg Take 120 [place] (IMITREX) 8-31 mg by Methodi 100 MG 00:00: mouth as st tablet 00 needed. DULoxetine Yes 90mg QD Take 90 mg [place] (CYMBALTA) 5-15 by mouth Metho di 30 MG 00:00: daily. st capsule 00 Vital Signs Vital Name Observation Time Observation Value Comments Source Systolic blood 2020-12-03 14:36:00 123 mm[Hg] [place] n [facility] pressure Diastolic blood 2020-12-03 14:36:00 58 mm[Hg] Nik on [facility]an pressure Heart rate 2020-12-03 14:36:00 89 /min Tino French Body height 2020-12-03 14:36:00 165.1 cm [place] [facility] Body weight 2020-12-03 14:36:00 67.132 kg [place] [facility] BMI 2020-12-03 14:36:00 24.63 kg/m2 Tino French Oxygen saturation in 2020-12-03 14:36:00 97 /min Tino French Arterial blood by Pulse oximetry Respiratory rate 2020-04-03 12:40:00 16 /min Lexx French Body temperature 2020-03-13 15:00:00 36.22 Tiffanie Lexx ton [facility] Procedures Procedure Date / Time Performed Performing Clinician Sourc e NT-PROBNP 2020-12-09 14:10:00 Sabiha Marquez Meth odist COMPREHENSIVE METABOLIC 2020-12-09 14:10:00 AlmaSabiha ton [facility]an PANEL CBC WITH PLATELET AND 2020-12-09 14:10:00 Alma, Imad [place] [facility] DIFFERENTIAL BASIC METABOLIC PANEL 2020-06-30 15:27:00 Alma, Imad [place] [facility] CBC WITH PLATELET AND 2020-06-30 15:27:00 Alma, Imad [place] [facility] DIFFERENTIAL B NATRIURETIC PEPTIDE 2020-06-30 15:27:00 Alma, Imad [place] [facility] CV CARDIAC PET STRESS 2020-06-25 15:26:09 Alma, Imad [place] [facility] TEST CT CARDIAC OVERREAD 2020-04-03 13:42:05 Tea, Beng Loong Roberto Ho shyam French CV CTA CORONARY ARTERIES 2020-04-03 13:05:00 Tea, Beng Loong Angélica odalys French W CONTRAST POC CREATININE 2020-04-03 12:41:00 Sabiha Marquez Meth odist ESTIMATED GFR 2020-04-03 12:41:00 Sabiha Marquez Meth odist TTE COMPLETE, WO 2020-03-13 15:00:00 Nirmal Nelson Met charisma CONTRAST, W DOPPLER ([id number]) CV RIGHT HEART CATH 2020-03-13 14:47:35 Sabiha Marquez [facility] POC , URINE 2020-03-13 11:43:00 Sabiha Marquez [facility] BASIC METABOLIC PANEL 2020-02-22 12:50:00 Alma, Imad [place] [facility] CBC WITH PLATELET AND 2020-02-22 12:50:00 Alma, Imad [place] [facility] DIFFERENTIAL Plan of Care Planned Activity Planned Date Details Comments Source Future Scheduled 2021-04-26 INFLUENZA VACCINE [facility] [facility] Test 00:00:00 [code = INFLUENZA VACCINE] Future Scheduled 2021 BREAST CANCER [place] Ut thodist Test 00:00:00 SCREENING [code = BREAST CANCER SCREENING] Future Scheduled 2021 COLONOSCOPY SCREENING [place] [facility] Test 00:00:00 [code = COLONOSCOPY SCREENING] Future Scheduled 2021 SHINGLES VACCINES [facility] Test 00:00:00 (#1) [code = SHINGLES VACCINES (#1)] Future Scheduled 2020-12-13 COVID-19 VACCINE (2 - [place] [facility] Test 00:00:00 Pfizer 2-dose series) [code = COVID-19 VACCINE (2 - Pfizer 2-dose series)] Future Scheduled 1992-01-14 Screening for [place] Me thodist Test 00:00:00 malignant neoplasm of cervix (procedure) [code = 081221038] Future Scheduled 1989 Hepatitis C screening [place] [facility] Test 00:00:00 (procedure) [code = 741681303] Encounters Start End Encounter Admission Attending Care Care Encounter Source Date/Time Date/Time Type Type Clinicians Facility Department ID 2020-12-03 2020-12-03 Outpatient ALMA, [facility] [id number] [place] 00:00:00 00:00:00 IMAD 058 Method i 2020-12-03 2020-12-03 Outpatient AHMAD, [facility] [id number] [place] 00:00:00 00:00:00 ALMA 292 Method i 2020-12-03 2020-12-03 Outpatient ALMA, [facility] [id number] [place] 00:00:00 00:00:00 IMAD 142 Method i 2020-07-02 2020-07-02 Outpatient ALMA, [facility] [id number] [place] 00:00:00 00:00:00 IMAD 334 Method i 2020-06-25 2020-06-25 Outpatient ALMA, [facility] [id number] [place] 00:00:00 00:00:00 IMAD 279 Method i 2020-04-14 2020-04-14 Orders Doctor GILMA 1.2.840.114 [id number] 00:00:00 00:00:00 Only Unassigned, GERALDO 350.1.13.10 [place] [facility] 4.2.7.2.686 [id number] [id number] 2020-04-03 2020-04-03 Outpatient ALMA, [facility] [id number] [place] 00:00:00 00:00:00 IMAD 253 Method i 2020-04-03 2020-04-03 Outpatient ALMA, [facility] [id number] [place] 00:00:00 00:00:00 IMAD 713 Method i 2020-04-03 2020-04-03 Orders Doctor GILMA 1.2.840.114 [id number] 00:00:00 00:00:00 Only Unassigned, GERALDO 350.1.13.10 [place] [facility] 4.2.7.2.686 [id number] [id number] 2020-03-19 2020-03-19 Outpatient [facility] [id number] [place] 00:00:00 00:00:00 IMAD 579 Method i 2020-03-13 2020-03-13 Outpatient [facility] 021 [id number] [place] 00:00:00 00:00:00 IMAD 264 Method i 2020-03-06 2020-03-06 Laboratory Only, [facility] 1.2.840.114 7 [id number] 14:15:13 14:30:13 Only Test [place] 350.1.13.10 [place] 4.2.7.2.686 [place] [id number] 2020-03-06 2020-03-06 Orders Doctor DILLARD 1.2.840.114 [id number] 00:00:00 00:00:00 Only Unassigned, GERALDO 350.1.13.10 [place] [address].2.7.2.686 [id number] [id number] 2020-02-21 2020-02-21 Orders Doctor DILLARD 1.2.840.114 [id number] 00:00:00 00:00:00 Only Unassigned, GERALDO 350.1.13.10 [place] [facility] 42.7.2.686 [id number] 2020-02-11 2020-02-11 Orders Doctor DILLARD 1.2.840.114 [id number] 00:00:00 00:00:00 Only Unassigned, GERALDO 350.1.13.10 [place] [address]2.686 [id number] 2020-02-06 2020-02-06 [facility] [id number] [place] 00:00:00 00:00:00 IMAD 662 Method i 2020-01-18 2020-01-18 Outpatient [facility] [id number] [place] 00:00:00 00:00:00 IMAD 182 Method i 2019-12-24 2019-12-24 Outpatient [facility], [facility] [id number] [place] 00:00:00 00:00:00 IMAD 335 Method i 2019-12-24 2019-12-24 Outpatient [facility], [facility] [id number] [place] 00:00:00 00:00:00 IMAD 336 Method i 2019-12-24 2019-12-24 Outpatient ALMA, [facility] [id number] [place] 00:00:00 00:00:00 IMAD 223 Method i 2019-12-19 2019-12-19 Refill GILMA Hull [id number] [id number] 00:00:00 00:00:00 Adriel CHOW 350.1.13.10 [facility] 4.2.7.2.686 [id number] 2019-12-14 2019-12-14 Orders Doctor GILMA Stephens.2.840.114 [id number] 00:00:00 00:00:00 Only Unassigned, GERALDO 350.1.13.10 [place] [facility] 4.2.7.2.686 [id number] 2019-12-06 2019-12-07 Emergency Castillo, Rajani [facility] 1.2.840 .114 [id number] 12:12:09 16:34:00 Adriel Hull 350.1.13.10 [place] 4.2.7.2.686 [place] [id number] 2019-12-03 2019-12-03 Orders Doctor GILMA 1.2.840.114 [id number] 00:00:00 00:00:00 Only UnassignedGERALDO 350.1.13.10 [place] [facility] .2.7.2.686 [id number] [id number] 2019-11-28 2019-11-28 Orders Doctor GILMA Rosen2.840.114 [id number] 00:00:00 00:00:00 Only UnassignedGERALDO 350.1.13.10 [place] [facility] 2.7.2.686 [id number] [id number] 2019-11-20 2019-11-20 Patient Doctor GILMA 1Orlin2.840.114 [id number] 00:00:00 00:00:00 Secure Msg Unassigned, GERALDO 350.1.13.10 [place] [facility] 42.7.2.686 [id number] 2019-11-19 2019-11-19 Orders Doctor GILMA Stephens.2.840.114 [id number] 00:00:00 00:00:00 Only Unassigned, GERALDO 350.1.13.10 [place] [address]2.686 [id number] [id number] 2019-10-22 2019-10-22 Orders Doctor GILMA Stephens.2.840.114 [id number] 00:00:00 00:00:00 Only Unassigned, GERALDO 350.1.13.10 [place] [facility] 4.2.7.2.686 [id number] [id number] 2019-09-12 2019-09-12 Outpatient [facility] [id number] [place] 00:00:00 00:00:00 JOSELINE [address] 2019-09-12 2019-09-12 Outpatient [facility] [id number] [place] 00:00:00 00:00:00 JOSELINE 786 Method i 2019-09-12 2019-09-12 Outpatient [facility] [id number] [place] 00:00:00 00:00:00 JOSELINE [address] 2019-08-08 2019-08-08 Outpatient [facility], [facility] 021 [id number] [place] 00:00:00 00:00:00 IMAD [address] Results Test Description Test Time Test Comments Results Result Comments Source Comprehensive metabolic panel 2020-12-09 14:10:00 Test Item Value Reference Range Interpretation Comme nts Glucose (test code = 102 mg/dL 65-99 H Fasting 2345-7) reference inter tayla For someone without known diabetes, a glu cose valuebetween 10 0 and 125 mg/dL is consis tent withprediabetes and should be confi rmed with afollow-up test . BUN (test code = 3094-0) 14 mg/dL 7-25 Creatinine (test code = 0.85 mg/dL 0.50-1.10 2160-0) EGFR Non-Afr. Belgian 80 See_Comment [Aut omated message] The (test code = 2775) system wh ich generated this result tra nsmitted reference range : > OR = 60 mL/min/1.73m 2. The reference range was not used to interpr et this result as normal/abnormal . EGFR 93 See_Comment [Auto mated message] The (test code = 17199-1) system which generated this result tra nsmitted reference range : > OR = 60 mL/min/1.73m 2. The reference range was not used to interpr et this result as normal/abnormal . BUN/creatinine ratio NOT APPLICABLE See_Comment [Aut omated message] The (test code = 3097-3) system which generated this result tra nsmitted reference range : 6 - 22 (calc). The ref erence range was not u sed to interpret this result as normal/abnormal . Sodium (test code = 143 mmol/L 705-178 6816-2) Potassium (test code = 4.4 mmol/L 3.5-5.3 2823-3) Chloride (test code = 103 mmol/L 98-110 2075-0) CO2 (test code = 8-9) 33 mmol/L 20-32 H Calcium (test code = 10.2 mg/dL 8.6-10.2 90735-3) Protein (test code = 7.1 g/dL 6.1-8.1 2885-2) Albumin, S (test code = 4.5 g/dL 3.6-5.1 1751-7) Globulin, total (test 2.6 See_Comment [Auto mated message] The code = 87188-7) system which generated this result tra nsmitted reference range : 1.9 - 3.7 g/dL (calc) . The reference range was not used to interpr et this result as normal/abnormal . Albumin/globulin ratio 1.7 See_Comment [Aut omated message] The (test code = 1759-0) system which generated this result tra nsmitted reference range : 1.0 - 2.5 (calc). The reference range was not u sed to interpret this result as normal/abnormal . Total bilirubin (test 0.5 mg/dL 0.2-1.2 code = 1975-2) Alkaline phosphatase 51 U/L 31-125 (test code = 6768-6) AST (test code = 1920-8) 17 U/L 10-35 ALT (test code = 1742-6) 13 U/L 6-29 MI (test code = MI) FASTING: UNKNOWN RAC (test code = RAC) Performing Organization Information: Site ID: RGA Name: [facility] Address: [address] [place] [id number] Director: Ervin Enamorado Lab Interpretation (test Abnormal code = 76605-3) [place] [facility] with [facility] and [id number] 14:10:00 Test Item Value Reference Range Interpretation Comments WBC (test code = 4.7 See_Comment [Automated 6690-2) message] The system which generated this result transmitted reference range : 3.8 - 10.8 Thousand/uL. Th e reference range was not used to interpret this result as normal/abnormal . RBC (test code = 3.88 See_Comment [Automated 789-8) message] The system which generated this result transmitted reference range : 3.80 - 5.10 Million/uL. The reference range was not used to interpret this result as normal/abnormal . HGB (test code = 12.1 g/dL 11.7-15.5 718-7) HCT (test code = 35.9 % 35.0-45.0 4544-3) MCV (test code = 92.5 fL 80.0-100.0 787-2) MCH (test code = 31.2 pg 27.0-33.0 785-6) MCHC (test code = 33.7 g/dL 32.0-36.0 786-4) RDW (test code = 12.5 % 11.0-15.0 788-0) Platelet count 266 See_Comment [Automated (test code = message] The 777-3) system which generated this result transmitted reference range : 140 - 400 Thousand/uL. Th e reference range was not used to interpret this result as normal/abnormal . MPV (test code = 10.9 fL 7.5-12.5 776-5) Neutrophils, 2660 See_Comment [Automated absolute (test message] The code = 751-8) system which generated this result transmitted reference range : 1,500 - 7,800 cells/uL. The reference range was not used to interpret this result as normal/abnormal . Lymphocytes, 1485 See_Comment [Automated absolute (test message] The code = 731-0) system which generated this result transmitted reference range : 850 - 3,900 cells/uL. The reference range was not used to interpret this result as normal/abnormal . Monocytes, 432 See_Comment [Automated absolute (test message] The code = 742-7) system which generated this result transmitted reference range : 200 - 950 cells/uL. The reference range was not used to interpret this result as normal/abnormal . Eosinophils, 80 See_Comment [Automated absolute (test message] The code = 711-2) system which generated this result transmitted reference range : 15 - 500 cells/uL. The reference range was not used to interpret this result as normal/abnormal . Basophils, 42 See_Comment [Automated absolute (test message] The code = 704-7) system which generated this result transmitted reference range : 0 - 200 cells/u L. The reference range was not used to interpr et this result as normal/abnormal . Neutrophils (test 56.6 % code = 770-8) Lymphocytes (test 31.6 % code = 736-9) Monocytes (test 9.2 % code = 5905-5) Eosinophils (test 1.7 % code = 713-8) Basophils + RC 0.9 % (test code = 706-2) MI (test code = FASTING: UNKNOWN MI) RAC (test code = Performing RAC) Organization Information: Site ID: RGA Name: [facility] Address: [address] [place] [id number] Director: Ervin Enamorado [place] [id number] 14:10:00 Test Item Value Reference Range Interpretation Comments NT-proBNP 56 pg/mL Female Risk: (test code = Optimal < 372 82774-3) pg/mL High > or = 372 pg/mL For H eart Failure (HF) diagnosis, referenceranges in patients with d yspnea are based onJan lazaro PALM, Et al. J Am Silvano Cardiol.2018;71 :1191-1 200. 18-49 year s: <= 300 pg/mL Ivett l, HF unlikely >= 45 0 pg/mL High probabilit y of HF50-75 years: <= 300 pg/mL Normal, H F unlikely >= 90 0 pg/mL High probabilit y of HF>75 years: < = 300 pg/mL Normal, H F unlikely >= 18 00 pg/mL High prob ability of HF For patie nts with coronary h eart disease, theopt imal risk category c ut points for inci dent HFor CVD (<253 pg/mL men, <372 pg/mL women) arebased on Álvaro T, et al . J Am Silvano Cardiol.2007:50 :205-14 . For patients with existing HF, th e optimal riskcat egory cut point for H F progression (<3 00 pg/mL)is based on Talisha KB, et al. Clin Biochem.2010;43 :1405-1 0. For addition al information, pl ease refer tohttp://educat ion.[facility] stdiagnostics.c om/faq/ IRP765(This marilyn k is being provided for informational/e ducatio nalpurposes onl y.) NO COLLECTION DATE RECEIVED. WE MA VE USEDTHE DATE E SPECIMEN WAS RE CEIVED BY GINA PRO THE COLLECTION DATE. IF THISIS INCOR RECT, PLEASE CONTACT CLIENT SERVICES.PHONE NUMBER: [phone] MI (test FASTING: UNKNOWN code = MI) RAC (test Performing code = RAC) Organization Information: Site ID: EZ Name: [facility], Address: [address] [place] [id number] Director: Angelica Wells MD,PhD,JUDITH [place] [facility] metabolic [id number] 12:57:00 Test Item Value Reference Range Interpretation Comments Glucose (test 99 mg/dL 65-99 code = 2345-7) Fasting refer ence interval BUN (test code = 18 mg/dL 7-25 3094-0) Creatinine (test 0.87 mg/dL 0.50-1.10 code = 2160-0) EGFR Non-Afr. 78 See_Comment [Automated Belgian (test message] The code = 2775) system which generated this result transmit storm reference range : > OR = 60 mL/min/1.73m2. The reference range was not used to interpret this result as normal/abnormal . EGFR 91 See_Comment [Automated Belgian (test message] The code = 47335-2) system which generated this result transmit storm reference range : > OR = 60 mL/min/1.73m2. The reference range was not used to interpret this result as normal/abnormal . BUN/creatinine NOT APPLICABLE See_Comment [Automated ratio (test code message] Th e = 3097-3) system which generated this result transmit storm reference range : 6 - 22 (calc). Th e reference range was not used to interpret this result as normal/abnormal . Sodium (test code 141 mmol/L 135-146 = 2951-2) Potassium (test 3.8 mmol/L 3.5-5.3 code = 2823-3) Chloride (test 103 mmol/L 98-110 code = 2075-0) CO2 (test code = 31 mmol/L 20-32 2027-9) Calcium (test 10.2 mg/dL 8.6-10.2 code = 64415-5) RAC (test code = Performing RAC) Organization Information: Site ID: RGA Name: [facility] Address: [address] [place] [address] Director: Ervin Navas natriuretic [id number] 12:57:00 Test Item Value Reference Range Interpretation Comments BNP (test 12 pg/mL <100 BNP levels inc rease code = with age in the [address]0765-6) generalpopulati on with the highest tayla ues seen inindividuals g reater than 75 years o f age.Reference: J. Am. Silvano. Cardiol. 2002; 40:976-982. RAC (test Performing code = RAC) Organization Information: Site ID: RGA Name: [facility] Address: [address] [place] [phone] Director: Ervin Samayoa Cardiac [id number] 14:29:57Hm Interface, Radiology Results Incoming - 04/03/2020 2:33 PM CDTFormatting of this note might be di fferent from the original.EXAMINATION: CT CARDIAC OVERREADCLINICAL HISTORY: Radiology overread of imaging performed in the cardiology department. Only extracardiac structures are assessed. 50 years Female I25.10 Atherosclerotic heart disease of [place] coronary artery without angina pectoris, I42.9 C ardiomyopathy unspecified, Congestive Heart Failure Coronary Artery Disease Evaluate coronariesTECHNIQUE: Please refer to cardiology note for details on the acquisition technique.COMPARISON: None.FINDINGS: Extracardiac findings:Lungs and airways: 6Calcified granuloma along the left major fissure Pleura: No pleural effusion or pneumothorax.Mediastinum and lymph nodes: No lymphadenopathy. Upper abdomen: No suspicious abnormalities.Musculoskeletal: Degenerative changes of the osseous structures. Nosuspicious lesions.Please refer to separately dictated cardiology report for cardiac and vascular fin dings.IMPRESSION:1.Calcified granuloma along the left major fissureHouston MethodistTransthoracic Echocardiogram Complete, (w Contrast, Strain and 3D if needed)2020-03-13 16:14:00Interface, Radiology Results In 03/13/2020 4:15 PM CDT Echocardiography Report [address] [place] [address] Pat.Name: AN THOMAS [facility].ID: [id number] .Date: 03/13/2020 Refer.MD: SABIHA MARQUEZ MD Exam Time: 2:07:00 PM Study Type:Routine Echo Height: 65in Weight: 152lb BSA: 1.76 m2 Age: 4 1970,50Y Sex: FEMALE BP: 118/74 HR: 62 bpm Sonogrphr: NIMA Anderson Pat. Stat.:[facility] Study Status:Final Echo Event ID:[id number] Order ID: [id number] Reason for Study:Mitral RegurgitationHistory / Clinical:Congestive Heart Failure, Reynaud's DiseaseProcedures: 2D Echo, Colorflow Doppler, PortableRace: C SUMMARY: ---------Bicycle stress echo done during right heart cath. HR at rest 60 bpmand 110 at peak exercise.LV EF is lower limits of normal at rest and increases to 60-64% withbicycle exercise.RV systolic function is lower limits of normal at rest and not wellseen during bicycle exercise.Trace mitral regurgitation, at rest that remains unchanged withexercise. FINDINGS:---- LV: LV size is mildly enlarged. There is mild eccentric LV hypertrophy. LV EF is lower limits of normal. Overall wall motion is lower limits of normal. Estimated EF is 50-54%.RV: RV size is normal. RV systolic function is lower limits of normal. LA: LA size is normal.RA: RA size is normal.AO: Aortic root diameteris normal.MARTHA: No pericardial effusion.AV: No structural AV abnormalities noted.MV:Mild thickening of mitral leaflets. A trace of mitral regurgitation. PV: No structural PV abnormalities noted.TV: No structural TV abnormalities noted. ------MEASUREMENTS: 2DParasternal Long [place] Ao Rtd 3.6 cm Index 2.1 cm/m2 LA Ds 2.9 cm IVSd 1.3 cm RWT 0.38 LVIDd 4.8 cm Index 2.7 cm/m2 LV Mass 190 g (87-129)* LVIDs 3.5 cm LVM Index 108 g/m2 LV%fs 27 % LVOT 1.8 cm LVPWd 0.91 cm LA Sng Plane LA Area 14 cm2 (8.8- 23.4) LA Vol 35 ml Index 20 ml/m2 LA LngAx 4.2 cm RA Sng Plane RA Vol 27 ml Index 16 ml/m2 RA LngAx 3.7 cm RA Area 12 cm2 (8.3-19.5)LVOT LVOT Area 2.5 cm2 03/13/2020 04:14 [facility] M.D. [facility] lab [id number] 16:12:32Resting Hemodynamics: BP: 122/75 (MAP 91), HR: NSR at 60 bpm, O2 Sat 100% RAP (A/V/M): 5/7/4 mmHgRVSP:22 mmHgRVEDP: 4 mmHgPAP (S/D/M): 22/10/14 mmHgPCWP (A/V/M): 8/12/7 mmHgCardiac Output/Index (TD): 4.7/2.3Cardiac Output/Index (Marnie): 4.0/2.3SVR 1480 Dynesseccm?? at BP 122/75 (MAP 91 mmHg). Resting TTE Findings:- Trace MR and TR on limited TTE images. Passive Leg Raise Hemodynamics:PAP (S/D/M): 26/14/18 mmHgPCWP (A/V/M): 12/18/10 mmHg Peak Exercise Hemodynamics: BP: 140/71 (MAP 94), HR: Sinus tachycardia at 115 bpm, O2 Sat: 100%. Protocol 3 - 4.4 METs, 65 Rodas, 11 minutes 30 seconds, O2 Sat: 99-100% PAP (S/D/M): 28/14/19 mmHgPCWP (A/V/M): 16/19/10 mmHgCardiac Output/Index (TD): 9.47/5.38 Peak Exercise TTE Findings:- Trace MR and TR. No significant change from resting echo findings. Conclusi on:Exercise right heart catheterization shows no evidence of exercise-induced pulmonary arterial hypertension that was seen on the last study after initiation of sildenafil therapy. Additionally, there is no evidence of exercise-induced heart failure with preserved ejection fraction. Blood pressure increased appropriately with exercise although heart rate response was blunted. Cardiac output increased to 2.5 x baseline at peak-exercise. There was clearly no evidence of O2 desaturation with exercise. There were no ischemic changes on telemetry. Overall, exercise hemodynamics are most consistentwith normal cardiopulmonary response to exercise with some element of chronotropic incompetence which is iatrogenic related to beta-eva use. However, overall clinical scenario is most consistent with deconditioning. Recommendation:1. Referral for cardiac rehabilitation.[facility] , urine 2020-03-13 11:43:00 Test Item Value Reference Range Interpretation Comments test urine, POC (test Negative code = [id number]) Internal QC (test code = 257) QC acceptable Tino French
[2021-02-06] MEDS ORDERED: ASPIRIN 81 MG CHEWABLE TABLET ONE (11:58)
--- NOTE | 2021-02-06 12:09 | RAD REPORT ---
EXAM DESCRIPTION: RAD - Chest Single View - 02/06/2021 11:59 am CLINICAL HISTORY: CHEST PAIN Chest pain. COMPARISON: Chest Single View dated 08/10/2018 FINDINGS: Portable technique limits examination quality. The lungs are grossly clear. The heart is normal in size. No displaced fractures. IMPRESSION: No acute intrathoracic process suspected.
[2021-02-06 12:28] LABS: Protime INR 1.05
[2021-02-06 12:30] LABS: ALT/SGPT 19 U/L (12-78); AST/SGOT 12 U/L (15-37); Albumin 3.9 g/dL (3.4-5.0); Alkaline Phosphatase 54 U/L (45-117); BUN Blood Urea Nitrogen 14 mg/dL (7-18); Bicarbonate 28 mmol/L (21-32); Bilirubin Direct 0.1 mg/dL (0-0.2); Bilirubin Total 0.6 mg/dL (0.2-1.0); Glucose Level 97 mg/dL (74-106); Magnesium 2.4 mg/dL (1.8-2.4); NT PRO-BNP 20 pg/mL (<125); Potassium 4.1 mmol/L (3.5-5.1); Protein, Total 7.8 g/dL (6.4-8.2); Sodium Level 140 mmol/L (136-145); Troponin (Emerg Dept Use Only) < 0.02 ng/mL (0.0-0.045)
--- NOTE | 2021-02-06 12:32 | ER ---
Nurse's Notes [facility] Name: Leslie Floyd Age: 51 yrs Sex: Female : 1970 Arrival Date: 02/06/2021 Time: 11:05 Bed 16 Private MD: Chandana Palomares B Diagnosis: Chest pain, unspecified Presentation: 02/06 11:15 Chief complaint: Patient states: "I have been having chest pain/pressure since about jd3 Tuesday. 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 Coronavirus screen: At this time, the client does not indicate any symptoms associated with coronavirus-19. Ebola Screen: Patient negative for fever greater than or equal to 101.5 degrees Fahrenheit, and additional compatible Ebola Virus Disease symptoms. Initial Sepsis Screen: Does the patient meet any 2 criteria? No. Patient's initial sepsis screen is negative. Does the patient have a suspected source of infection? No. Patient's initial sepsis screen is negative. Risk Assessment: Do you want to hurt yourself or someone else? Patient reports no desire to harm self or others. Onset of symptoms was February 04, 2021. 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 - Social history:: Smoking status: Patient denies any tobacco usage or history of. Screenin:15 Abuse screen: Denies threats or abuse. Denies injuries from another. Nutritional ca1 screening: No deficits noted. Tuberculosis screening: No symptoms or risk factors identified. Fall Risk IV access (20 points). Assessment: 11:15 General: Appears in no apparent distress. comfortable, Behavior is cooperative, ca1 appropriate for age, anxious. Pain: Complains of pain in chest Pain radiates to back Pain currently is 4 out of 10 on a pain scale. Quality of pain is described as heavy, pressure, Pain began 2-3 days ago. Is intermittent, Also complains of nausea, shortness of breath. Neuro: Level of Consciousness is awake, alert, obeys commands, Oriented to person, place, time, situation. Neuro: Reports dizziness, headache. Cardiovascular: Heart tones S1 S2 present Capillary refill < 3 seconds Patient's skin is warm and dry. Rhythm is sinus rhythm. Respiratory: Reports shortness of breath Airway is patent Respiratory effort is even, unlabored, Respiratory pattern is regular, symmetrical, Breath sounds are clear bilaterally. GI: Abdomen is flat, non-distended, Bowel sounds present X 4 quads. Abd is soft and non tender X 4 quads. GI: Reports nausea. : No signs and/or symptoms were reported regarding the genitourinary system. EENT: No signs and/or symptoms were reported regarding the EENT system. Derm: Skin is intact, is healthy with good turgor, Skin is pink, warm \\T\\ dry. Musculoskeletal: Circulation, motion, and sensation intact. Capillary refill < 3 seconds. 12:51 Reassessment: Patient appears in no apparent distress at this time. Patient and/or ca1 family updated on plan of care and expected duration. Pain level reassessed. Patient is alert, oriented x 3, equal unlabored respirations, skin warm/dry/pink. 13:55 Reassessment: Patient appears in no apparent distress at this time. Patient and/or ca1 family updated on plan of care and expected duration. Pain level reassessed. Patient is alert, oriented x 3, equal unlabored respirations, skin warm/dry/pink. 14:55 Reassessment: Patient appears in no apparent distress at this time. Patient and/or ca1 family updated on plan of care and expected duration. Pain level reassessed. Patient is alert, oriented x 3, equal unlabored respirations, skin warm/dry/pink. 15:55 Reassessment: Patient appears in no apparent distress at this time. Patient and/or ca1 family updated on plan of care and expected duration. Pain level reassessed. Patient is alert, oriented x 3, equal unlabored respirations, skin warm/dry/pink. 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 I'm building a migraine at the moment" Notified Dr. Bruner, VO repeat Troponin and Make sure ECHO is done and read. 16:10 Reassessment: Called Cardiology, no answer. [facility] secretary states, echo techs ca1 leave at [address] Bruner. 17:00 Reassessment: Trop repeat result back. Notified Dr. Bruner. He will come see the pt for ca1 re eval and discharge. 17:43 Reassessment: Patient appears in no apparent distress at this time. Patient and/or ca1 family updated on plan of care and expected duration. Pain level reassessed. Patient is alert, oriented x 3, equal unlabored respirations, skin warm/dry/pink. Vital Signs: 11:20 BP 105 / 64; Pulse 94; Resp 17 S; Temp 98.4(O); Pulse Ox 99% on R/A; Weight 65.77 kg jd3 (R); Height 5 ft. 5 in. (165.10 cm) (R); Pain 7/10; 12:51 BP 105 / 78; Pulse 65; Resp 14 S; Pulse Ox 96% on R/A; ca1 13:55 BP 118 / 87; Pulse 61; Resp 14 S; Pulse Ox 100% on R/A; ca1 14:55 BP 112 / 82; Pulse 69; Resp 16 S; Pulse Ox 100% on R/A; ca1 15:55 BP 103 / 84; Pulse 70; Resp 18 S; Pulse Ox 99% on R/A; ca1 16:40 BP 121 / 70; Pulse 70; Resp 16 S; Pulse Ox 97% on R/A; ca1 17:43 BP 120 / 75; Pulse 70; Resp 16 S; Pulse Ox 97% on R/A; ca1 11:20 Body Mass Index 24.13 (65.77 kg, 165.10 cm) jd3 ED Course: 11:05 Patient arrived in ED. am2 11:05 Chandana Palomares MD is Private Physician. am2 11:15 Patient has correct armband on for positive identification. Placed in gown. Bed in low ca1 position. Call light in reach. Side rails up X2. color television console monitor on. Pulse ox on. NIBP on. Warm blanket given. 11:16 Triage completed. jd3 11:17 [facility] 8 11:17 Abhi Montoya MD is Attending Physician. jr8 11:21 Arm band placed on. EKG completed in triage. Results shown to . jd3 11:35 Nusrat Hudson, RN is Primary Nurse. ca1 11:51 No provider procedures requiring assistance completed. Initial lab(s) drawn, by me, ca1 sent to lab. Inserted saline lock: 20 gauge in left antecubital area, using aseptic technique. Blood collected. Patient maintains SpO2 saturation greater than 95% on room air. 11:59 XRAY Chest (1 view) In Process Unspecified. EDMS 12:31 Armond Bruner DO is Hospitalizing Provider. jr8 18:08 IV discontinued, intact, bleeding controlled, No redness/swelling at site. Pressure ca1 dressing applied. Administered Medications: 11:51 Drug: Aspirin Chewable Tablet 324 mg Route: PO; ca1 12:52 Follow up: Response: No adverse reaction ca1 16:14 Drug: Tylenol 1000 mg Route: PO; ca1 17:49 Follow up: Response: No adverse reaction; Pain is decreased ca1 17:49 Drug: SOLU-Medrol (methylPrednisoLONE) 40 mg Route: IVP; Site: left antecubital; ca1 18:10 Follow up: Response: No adverse reaction ca1 Outcome: 12:31 Decision to Hospitalize by Provider. jr8 18:08 Discharged to home ambulatory. ca1 18:08 Condition: stable 18:08 Discharge instructions given to patient, Instructed on discharge instructions, follow up and referral plans. medication usage, Demonstrated understanding of instructions, follow-up care, medications, Prescriptions given X 2. 18:09 Patient left the ED. ca1 Signatures: Dispatcher [employer] EDAZ Yaniv Bruno PA PA jr8 Sade Roberts Jonathon RN RN jNusrat Sams RN RN ca1
--- NOTE | 2021-02-06 12:32 | EDPHYS ---
Physician Documentation [facility] Name: Leslie Floyd Age: 51 yrs Sex: Female : 1970 Arrival Date: 02/06/2021 Time: 11:05 Bed 16 Private MD: Chandana Palomares B ED Physician Abhi Montoya HPI: 02/06 12:28 This 51 yrs old Female presents to ER via Ambulatory with complaints of Chest jr8 Pain. 12:28 The patient or guardian reports chest pain that is located primarily in the substernal jr8 area. Onset: acutely, yesterday. The pain radiates to back. Associated signs and symptoms: Pertinent positives: dizziness. The chest pain is described as a pressure. Duration: The patient or guardian reports a single episode, that is still ongoing. Modifying factors: The symptoms are alleviated by nothing. the symptoms are aggravated by nothing. Severity of pain: At its worst the pain was moderate in the emergency department the pain is unchanged. The patient has experienced a previous episode. The patient has not recently seen a physician. 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 - Social history:: Smoking status: Patient denies any tobacco usage or history of. ROS: 12:28 Eyes: Negative for injury, pain, redness, and discharge, ENT: Negative for injury, jr8 pain, and discharge, Neck: Negative for injury, pain, and swelling, Respiratory: Negative for shortness of breath, cough, wheezing, and pleuritic chest pain, Abdomen/GI: Negative for abdominal pain, nausea, vomiting, diarrhea, and constipation, Back: Negative for injury and pain, MS/Extremity: Negative for injury and deformity, Skin: Negative for injury, rash, and discoloration. 12:28 Cardiovascular: Positive for chest pain, Negative for edema, orthopnea, palpitations, paroxysmal nocturnal dyspnea. 12:28 Neuro: Positive for dizziness. Exam: 12:28 Eyes: Pupils equal round and reactive to light, extra-ocular motions intact. Lids and jr8 lashes normal. Conjunctiva and sclera are non-icteric and not injected. Cornea within normal limits. Periorbital areas with no swelling, redness, or edema. ENT: Nares patent. No nasal discharge, no septal abnormalities noted. Tympanic membranes are normal and external auditory canals are clear. Oropharynx with no redness, swelling, or masses, exudates, or evidence of obstruction, uvula midline. Mucous membranes moist. Neck: Trachea midline, no thyromegaly or masses palpated, and no cervical lymphadenopathy. Supple, full range of motion without nuchal rigidity, or vertebral point tenderness. No Meningismus. Cardiovascular: Regular rate and rhythm with a normal S1 and S2. No gallops, murmurs, or rubs. Normal PMI, no JVD. No pulse deficits. Respiratory: Lungs have equal breath sounds bilaterally, clear to auscultation and percussion. No rales, rhonchi or wheezes noted. No increased work of breathing, no retractions or nasal flaring. Abdomen/GI: Soft, non-tender, with normal bowel sounds. No distension or tympany. No guarding or rebound. No evidence of tenderness throughout. Back: No spinal tenderness. No costovertebral tenderness. Full range of motion. Skin: Warm, dry with normal turgor. Normal color with no rashes, no lesions, and no evidence of cellulitis. MS/ Extremity: Pulses equal, no cyanosis. Neurovascular intact. Full, normal range of motion. Neuro: Awake and alert, GCS 15, oriented to person, place, time, and situation. Cranial nerves II-XII grossly intact. Motor strength 5/5 in all extremities. Sensory grossly intact. Vital Signs: 11:20 BP 105 / 64; Pulse 94; Resp 17 S; Temp 98.4(O); Pulse Ox 99% on R/A; Weight 65.77 kg jd3 (R); Height 5 ft. 5 in. (165.10 cm) (R); Pain 7/10; 12:51 BP 105 / 78; Pulse 65; Resp 14 S; Pulse Ox 96% on R/A; ca1 13:55 BP 118 / 87; Pulse 61; Resp 14 S; Pulse Ox 100% on R/A; ca1 14:55 BP 112 / 82; Pulse 69; Resp 16 S; Pulse Ox 100% on R/A; ca1 15:55 BP 103 / 84; Pulse 70; Resp 18 S; Pulse Ox 99% on R/A; ca1 16:40 BP 121 / 70; Pulse 70; Resp 16 S; Pulse Ox 97% on R/A; ca1 17:43 BP 120 / 75; Pulse 70; Resp 16 S; Pulse Ox 97% on R/A; ca1 11:20 Body Mass Index 24.13 (65.77 kg, 165.10 cm) jd3 MDM: 11:17 Patient medically screened. jr8 12:29 The patient was given aspirin in the Emergency Department. Data reviewed: vital signs, jr8 nurses notes, lab test result(s), EKG, radiologic studies, plain films. Data interpreted: Pulse oximetry: on room air is 99 %. Interpretation: normal. Counseling: I had a detailed discussion with the patient and/or guardian regarding: the historical points, exam findings, and any diagnostic results supporting the discharge/admit diagnosis, lab results, radiology results, the need for further work-up and treatment in the hospital. 02/06 11:22 Order name: Basic Metabolic Panel; Complete Time: 12:32 02/06 11:22 Order name: CBC with Diff; Complete Time: 12:49 02/06 11:22 Order name: LFT's; Complete Time: 12:32 02/06 11:22 Order name: Magnesium; Complete Time: 12:32 02/06 11:22 Order name: NT PRO-BNP; Complete Time: 12:32 02/06 11:22 Order name: PT-INR; Complete Time: 12:32 02/06 11:22 Order name: Troponin (emerg Dept Use Only); Complete Time: 12:32 02/06 11:22 Order name: XRAY Chest (1 view); Complete Time: 12:14 02/06 13:49 Order name: COVID-19 : Document "Date of Symptom Onset" if Symptomatic. ca1 02/06 15:16 Order name: SARS-COV-2 RT PCR; Complete Time: 15:58 EDMS 02/06 16:06 Order name: Troponin (emerg Dept Use Only) ca1 02/06 16:37 Order name: Troponin (Emerg Dept Use Only); Complete Time: 16:46 [facility] 02/06 11:22 Order name: EKG; Complete Time: 11:[address] [facility] 02/06 11:22 Order name: Cardiac monitoring; Complete Time: 11:[address] [facility] 02/06 11:22 Order name: EKG - Nurse/Tech; Complete Time: 11:[address] [facility] 02/06 11:22 Order name: IV Saline Lock; Complete Time: 11:[address] [facility] 02/06 11:22 Order name: Labs collected and sent; Complete Time: 11:[address] [facility] 02/06 11:22 Order name: O2 Per Protocol; Complete Time: 11:[address] [facility] 02/06 11:22 Order name: O2 Sat Monitoring; Complete Time: 11:52 jr Administered Medications: 11:51 Drug: Aspirin Chewable Tablet 324 mg Route: PO; ca1 12:52 Follow up: Response: No adverse reaction ca1 16:14 Drug: Tylenol 1000 mg Route: PO; ca1 17:49 Follow up: Response: No adverse reaction; Pain is decreased ca1 17:49 Drug: SOLU-Medrol (methylPrednisoLONE) 40 mg Route: IVP; Site: left antecubital; ca1 18:10 Follow up: Response: No adverse reaction ca1 Disposition: 02/07 07:48 Co-signature as Attending Physician, Abhi Montoya MD I agree with the assessment and al plan of care. 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 Disposition: 02/06/21 12:31 Hospitalization ordered by Armond Bruner for Observation. Preliminary diagnosis is Chest pain, unspecified. - Bed requested for Telemetry/MedSurg (observation). - Status is Observation. ca1 - Condition is Stable. - Problem is new. - Symptoms are unchanged. Signatures: Dispatcher [employer] Abhi Paredes MD MD cha Roszak, Josh, PA PA jr8 French Loomis, DRAMA CRITIC-C DRAMA CRITIC-Cla1 Law Simmons RN RN Herber Victor RN RN ja1 Nusrat Hudson RN RN ca1 Corrections: (The following items were deleted from the chart) 02/06 17:29 12:31 Hospitalization Ordered by Armond Bruner DO for Observation. Preliminary ja1 diagnosis is Chest pain, unspecified. Bed requested for Telemetry/MedSurg (observation). Status is Observation. Condition is Stable. Problem is new. Symptoms are unchanged. jr8 18:09 17:29 02/06/2021 12:31 Hospitalization Ordered by Armond Bruner DO for Observation. ca1 Preliminary diagnosis is Chest pain, unspecified. Bed requested for Telemetry/MedSurg (observation). Status is Observation. Condition is Stable. Problem is new. Symptoms are unchanged. ja1
[2021-02-06 12:33] LABS: Absolute Lymphocytes (CBC) 1.2 K/uL (0.7-4.9); Basophils % 1.2 % (0-1.3); Hematocrit 39.6 % (36.0-45.0); Lymphocytes % 29.8 % (15.3-44.8); MPV 9.5 fL (7.6-11.3); RBC Red Blood Cell Count 4.24 M/uL (3.86-4.86)
--- NOTE | 2021-02-06 15:55 | P.HP ---
Certification for Inpatient Patient admitted to: Observation With expected LOS: <2 Midnights Patient will require the following post-hospital care: None Practitioner: I am a practitioner with admitting privileges, knowledge of patient current condition, hospital course, and medical plan of care. Services: Services provided to patient in accordance with Admission requirements found in Title 42 Section 412.3 of the Code of Federal Regulations Patient History Date of Service: 02/06/21 Primary Care Provider: Dr. Palomares; Cardiology-Dr. Muñoz([facility]) Reason for admission: Chest pain History of Present Illness: 51-year-old female with history of hypertension, depression, hypothyroidism and migraine headaches. Patient presented with chest pressure. Chest pressure was mainly to the center of the chest. It would radiated to the back. It was reported with some nausea, headache and dizziness. She had a similar episode in July 2018. At that time she had an VT. Heart catheterization at that time showed normal coronaries. Since that time she is followed up with fourth officer at [facility]. She is currently on blood pressure medication. She was recently evaluated in January. She was to have scheduled a cardiac stress test but this was difficult to arrange. She came to the ER for further evaluation. Patient was evaluated the emergency room. So far cardiac enzymes unremarkable. No significant EKG changes noted. Patient admitted for further evaluation and treatment. Patient reports dry cough. No sick family members noted. No fever noted. Allergies No Known Allergies Allergy (Unverified 08/10/18 12:29) Home medications list reviewed: Yes Home Medications: Duloxetine HCl 30 mg PO DAILY 08/10/18 Lisdexamfetamine Dimesylate [Vyvanse] 50 mg PO DAILY 08/10/18 Norethindrone AC-Eth Estradiol [Norethind-Eth Estrad 1-0.02 mg] 1 tab PO DAILY 08/10/18 Omeprazole [Prilosec] 40 mg PO ACB 08/10/18 SUMAtriptan succinate [Sumatriptan Succinate] 100 mg PO DAILY PRN 08/10/18 Diltiazem Tab [Cardizem Tab*] 60 mg PO 1X PRN #15 tab 08/11/18 - Past Medical/Surgical History Diabetic: No -: Reynaud's Syndrome -: Chronic migraines -: Anxiety -: Stomach ulcer - March 2018 -: Hypertension -: Psychosocial/ Personal History: Patient lives at home - Social History Smoking Status: Never smoker Alcohol use: Yes CD- Drugs: No Caffeine use: Yes Place of Residence: Home Review of Systems General: As per HPI Eyes: Unremarkable ENT: Unremarkable Respiratory: Cough, As per HPI Cardiovascular: Chest Pain, Light Headedness, As per HPI Gastrointestinal: Nausea, As per HPI Musculoskeletal: Unremarkable Integumentary: Unremarkable Neurological: Unremarkable Lymphatics: Unremarkable Physical Examination - Physical Exam General: Alert, In no apparent distress, Oriented x3, Cooperative HEENT: Atraumatic, Normocephalic, Mucous membr. moist/pink Neck: Supple Respiratory: Clear to auscultation bilaterally, Normal air movement Cardiovascular: Normal pulses, Regular rate/rhythm Gastrointestinal: Normal bowel sounds, No tenderness, No masses, No rebound, No guarding Musculoskeletal: No erythema, No tenderness, No warmth Integumentary: No tenderness/swelling Neurological: Normal speech, Normal strength at 5/5 x4 extr, Normal tone, Normal affect - Studies Laboratory Data (last 24 hrs) 02/06/21 11:49: PT 12.1, INR 1.05 02/06/21 11:49: WBC 4.20 L, Hgb 13.3, Hct 39.6, Plt Count 257 02/06/21 11:49: Sodium 140, Potassium 4.1, BUN 14, Creatinine 0.88, Glucose 97, Magnesium 2.4, Total Bilirubin 0.6, AST 12 L, ALT 19, Alkaline Phosphatase 54 Assessment and Plan - Plan Impression: Chest pain HTN Migraine headaches Depression Plan: Patient will be admitted for observation. Will monitor telemetry and cardiac e nzymes. Will continue with her current meds. Will check ECHO. Will consult cardiology to further evaluate. Await recommendations. If workup unremarkable then will dc home. Discharge Plan: Home Plan to discharge in: 24 Hours - Advance Directives Does patient have a Living Will: Yes Does patient have a Durable POA for Healthcare: No - Code Status/Comfort Care Code Status Assessed: Yes (full code) Time Spent Managing Pts Care (In Minutes): 55
[2021-02-06] MEDS ORDERED: ACETAMINOPHEN 500 MG TAB ONE (16:32)
--- NOTE | 2021-02-06 17:41 | P.DS ---
Admission Date: 02/06/21 Discharge Date: 02/06/21 Primary Care Provider: Dr. Palomares; Cardiology-Dr. Muñoz([facility]) Disposition: ROUTINE DISCHARGE Discharge Condition: GOOD Reason for Admission: Chest pain Consultations: none Procedures: COVID: Negative CXR: COMPARISON: Chest Single View dated 08/10/2018 FINDINGS: Portable technique limits examination quality. The lungs are grossly clear. The heart is normal in size. No displaced fractures. IMPRESSION: No acute intrathoracic process suspected. Medical Problem List: Chest pain, atypical likely pleurisy HTN Migraine headaches Depression Brief History of Present Illness: 51-year-old female with history of hypertension, depression, hypothyroidism and migraine headaches. Patient presented with chest pressure. Chest pressure was mainly to the center of the chest. It would radiated to the back. It was reported with some nausea, headache and dizziness. She had a similar episode in July 2018. At that time she had an [place]. Heart catheterization at that time showed normal coronaries. 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 She is currently on blood pressure medication. She was recently evaluated in January. She was to have scheduled a cardiac stress test but this was difficult to arrange. She came to the ER for further evaluation. Patient was evaluated the emergency room. So far cardiac enzymes unremarkable. No significant EKG changes noted. Patient admitted for further evaluation and treatment. Patient reports dry cough. No sick family members noted. No fever noted. Hospital Course: Patient presented with chest pressure. She also reported a dry cough. Patient was monitored and observed. Repeat troponin negative. Chest x-ray unremarkable. CBC and BMP unremarkable. Patient with history of pulmonary hypertension, depression, hypothyroidism and migraines. Patient with prior heart catheterization in 2017 which showed normal coronaries. She is seen by Cardiology at [facility]. Chest pain atypical likely pleurisy. Patient given IV Solu-Medrol. At discharge she will continue with prednisone 10 mg daily for 7 days. She will also be provided albuterol 2 puffs 3 times a day as needed for shortness of breath. Recommend follow up with cardiology on Tuesday to further address her condition. Patient reports that she is scheduled to have a cardiac stress test in the near future. If chest pain persists she is to return back to the hospital. No evidence of heart failure at this time. Patient with home medications including Viagra, metoprolol, Cymbalta, levothyroxine and Imitrex. She may continue with her current medications. Recommend follow up with her PCP to further monitor and address. General: Alert, In no apparent distress, Oriented x3, Cooperative HEENT: Atraumatic Neck: Supple Respiratory: Clear to auscultation bilaterally, Normal air movement Cardiovascular: Normal pulses, Regular rate/rhythm Gastrointestinal: Normal bowel sounds, Soft and benign, Non-distended, No tenderness, No masses, No rebound, No guarding Musculoskeletal: No erythema, No tenderness, No warmth Integumentary: No tenderness/swelling, No erythema, No warmth, No cyanosis Neurological: Normal speech, Normal strength at 5/5 x4 extr, Normal tone, Normal affect Laboratory Data at Discharge: WBC 4.20 K/uL (4.3-10.9) L 02/06/21 11:49 Hgb 13.3 g/dL (12.0-15.0) 02/06/21 11:49 Hct 39.6 % (36.0-45.0) 02/06/21 11:49 Plt Count 257 K/uL (152-406) 02/06/21 11:49 PT 12.1 SECONDS (9.5-12.5) 02/06/21 11:49 INR 1.05 02/06/21 11:49 Sodium 140 mmol/L (136-145) 02/06/21 11:49 Potassium 4.1 mmol/L (3.5-5.1) 02/06/21 11:49 BUN 14 mg/dL (7-18) 02/06/21 11:49 Creatinine 0.88 mg/dL (0.55-1.3) 02/06/21 11:49 Glucose 97 mg/dL (74-106) 02/06/21 11:49 Magnesium 2.4 mg/dL (1.8-2.4) 02/06/21 11:49 Total Bilirubin 0.6 mg/dL (0.2-1.0) 02/06/21 11:49 AST 12 U/L (15-37) L 02/06/21 11:49 ALT 19 U/L (12-78) 02/06/21 11:49 Alkaline Phosphatase 54 U/L (45-117) 02/06/21 11:49 Home Medications: Albuterol Inhaler [Ventolin Inhaler*] 2 puff IH Q6H PRN #1 hfa.aer.ad 02/06/21 predniSONE [Deltasone*] 10 mg PO DAILY #7 tab 02/06/21 New Medications: predniSONE [Deltasone*] 10 mg PO DAILY #7 tab Albuterol Inhaler [Ventolin Inhaler*] 2 puff IH Q6H PRN #1 hfa.aer.ad PRN Reason: Shortness Of Breath Physician Discharge Instructions: Patient presented with chest pressure. She also reported a dry cough. Patient was monitored and observed. Repeat troponin negative. Chest x-ray unremarkable. CBC and BMP unremarkable. Patient with history of pulmonary hypertension, depression, hypothyroidism and migraines. Patient with prior heart catheterization in 2018 which showed normal coronaries. She is seen by Cardiology at [facility]. Chest pain atypical likely pleurisy. Patient given IV Solu-Medrol. At discharge she will continue with prednisone 10 mg daily for 7 days. She will also be provided albuterol 2 puffs 3 times a day as needed for shortness of breath. Recommend follow up with cardiology on Tuesday to further address her condition. Patient reports that she is scheduled to have a cardiac stress test in the near future. If chest pain persists she is to return back to the hospital. No evidence of heart failure at this time. Patient with home medications including Viagra, metoprolol, Cymbalta, levothyroxine and Imitrex. She may continue with her current medications. Recommend follow up with her PCP to further monitor and address. Diet: AHA Activity: Ad trice Followup: Chandana Palomares MD [Primary Care Provider] - Time spent managing pt's care (in minutes): 55
[2021-02-06] MEDS ORDERED: METHYLPREDNISOLONE 40 MG INJ ONE (18:05)
[2021-02-06 18:38] VITALS: TEMP 98.4
[2021-02-06 18:47] VITALS: O2SAT 97
[2021-02-06 18:49] VITALS: BP 120/75
== END 2021-02-06 18:10 | disposition home or self-care (01) ==
LOC: ER 11:01 → ERHOLD 13:49
PROVIDERS: ADMIT Family Medicine; ATTEND Family Medicine
DX: R07.89 Other chest pain (principal); I10 Essential (primary) hypertension; G43.909 Migraine, unspecified, not intractable, without status migrainosus; I27.20 Pulmonary hypertension, unspecified; I25.2 Old myocardial infarction; F32.9 Major depressive disorder, single episode, unspecified; E03.9 Hypothyroidism, unspecified; R05 Cough; R06.02 Shortness of breath; I73.00 Raynaud's syndrome without gangrene; F41.9 Anxiety disorder, unspecified; Z87.11 Personal history of peptic ulcer disease; Z20.822 Contact with and (suspected) exposure to COVID-19
CPT/HCPCS: 93005; 85025; 80048; 36415; 83735; 85610; 80076; 84484 ×2; 83880; 71045; 96374; 99285; U0003; J2920; G0378 ×2